=== PATIENT | female | born 1980 | race Caucasian/White ===

== ENCOUNTER 2019-12-15 20:00 | Emergency (ER) | payer BC ==
[2019-12-15] MEDS ORDERED: Diphtheria,Pertussis(Acell),Tetanus Vaccine 0.5 ML Syringe IM ONE (20:15)
[2019-12-15] MEDS ORDERED: Lidocaine 1% PF 2 ML SDV INJECT ONE (20:15)
--- NOTE | 2019-12-15 20:23 | EDM.PDOC ---
ED HPI GENERAL MEDICAL PROBLEM - General Chief Complaint: Laceration Stated Complaint: INJURY TO HAND Time Seen by Provider: 12/15/19 20:13 - History of Present Illness INITIAL COMMENTS - FREE TEXT/NARRATIVE: HISTORY AND PHYSICAL: History of present illness: The patient is a 39-year-old female who is unsure of her last tetanus shot and presents after cutting her left hand. Prior to these events she was in her usual state of good health with no systemic issues and she only complains of pain at the laceration. She has no numbness or tingling in her distal fingers and has no decreased range of motion. She otherwise is healthy. Review of systems: As per history of present illness and below otherwise all systems reviewed and negative. Past medical history: As per history of present illness and as reviewed below otherwise noncontributory. Surgical history: As per history of present illness and as reviewed below otherwise noncontributory. Social history: No reported history of drug or alcohol abuse. Family history: As per history of present illness and as reviewed below otherwise noncontributory. Physical exam: HEENT: Atraumatic, normocephalic, pupils reactive, negative for conjunctival pallor or scleral icterus, mucous membranes moist, throat clear, neck supple, nontender, trachea midline. Lungs: Clear to auscultation, breath sounds equal bilaterally, chest nontender. Heart: S1S2, regular, and rhythm no overt murmurs Abdomen: Soft, nondistended, nontender. Negative for masses or hepatosplenomegaly. Negative for costovertebral tenderness. Pelvis: Deferred Rectal: Deferred. Extremities: Atraumatic full range of motion of all extremities with the exception of the dorsal aspect of the left hand just proximal to the second MCP there is a linear laceration measuring a total of 2 cm with some subcu fat seen but the base is able to be visualized and there are no foreign bodies appreciated. The patient has a full strength with extension at this digit and has no other injuries. There is no numbness or tingling in the distal second digit. The legs are, negative for cords or calf pain. Neurovascular unremarkable. Neuro: Awake, alert, oriented. Cranial nerves II through XII unremarkable. Cerebellum unremarkable. Motor and sensory unremarkable throughout. Exam nonfocal. Diagnostics: [] Therapeutics: Irrigation, lidocaine 1% without epinephrine for sutures, bacitracin and dressing per nursing Procedure note: After the wound was irrigated and cleansed by nursing 1% lidocaine without epinephrine was infused in a local fashion and the wound was prepped and draped in sterile fashion. The wound was explored and no foreign bodies were appreciated. The skin edges were reapproximated using a total number of #3 sutures of 4-0 nylon in a simple interrupted fashion. There were no complications and the patient tolerated the procedure well. Bacitracin and a gauze dressing were applied. Procedure was performed by Waylon Boswell nurse practitioner Impression: Hand laceration left Definitive disposition and diagnosis as appropriate pending reevaluation and review of above. left hand Pain Score (Numeric/FACES): 4 - Related Data Allergies Allergy/AdvReac Type Severity Reaction Status Date / Time No Known Allergies Allergy Verified 12/15/19 20:28 Home Meds: Home Meds ALPRAZolam [Alprazolam] 1 - 2 tab PO ASDIRECTED PRN 04/28/17 [History] Benztropine [Cogentin] 1 mg PO BID 04/28/17 [History] Desog-E.Estradiol/E.Estradiol [Desogestr-Eth Estrad Eth Estra] 1 tab PO ASDIRECTED 04/28/17 [History] OLANZapine [Olanzapine] 5 mg PO DAILY 04/28/17 [History] QUEtiapine Fumarate [Seroquel] 2 tab PO BEDTIME 04/28/17 [History] Simvastatin 10 mg PO BEDTIME 04/28/17 [History] lamoTRIgine 200 mg PO BEDTIME 04/28/17 [History] Past Medical History HEENT History: Reports: Impaired Vision Other HEENT History: wears glasses Cardiovascular History: Reports: High Cholesterol Respiratory History: Reports: None Gastrointestinal History: Reports: None Genitourinary History: Reports: None Musculoskeletal History: Reports: None Neurological History: Reports: None Psychiatric History: Reports: Bipolar Endocrine/Metabolic History: Reports: None Hematologic History: Reports: None Oncologic (Cancer) History: Reports: None Dermatologic History: Reports: None - Past Surgical History Female Surgical History: Reports: Other (See Below) Other Female Surgeries/Procedures: states she does not get her menstual cycle due to the medications she is on. Social & Family History - Caffeine Use Caffeine Use: Reports: Soda ED ROS GENERAL - Review of Systems Review Of Systems: Comprehensive ROS is negative, except as noted in HPI. ED EXAM, SKIN/RASH Exam: See Below (See dictation) Course - Vital Signs Last Recorded V/S: Last Vital Signs Temp 36.5 C 12/15/19 20:12 Pulse 87 12/15/19 20:12 Resp 16 12/15/19 20:12 BP 147/77 H 12/15/19 20:12 Pulse Ox 97 12/15/19 20:12 - Orders/Labs/Meds Orders: Active Orders 24 hr Category Date Time Status Communication Order [RC] STAT Care 12/15/19 20:17 Active Vaccines to be Administered [RC] PER UNIT ROUTINE Care 12/15/19 20:15 Active Meds: Medications Discontinued Medications Generic Name Dose Route Start Last Admin Trade Name Freq PRN Reason Stop Dose Admin Diphtheria/Tetanus/Acell Pertussis 0.5 ml 12/15/19 20:15 Adacel IM 12/15/19 20:16 .ONCE ONE Lidocaine HCl 2 ml 12/15/19 20:15 Xylocaine-Mpf 1% INJECT 12/15/19 20:16 ONETIME ONE Departure - Departure Time of Disposition: 20:30 Disposition: Home, Self-Care 01 Condition: Good Clinical Impression: Laceration of hand Qualifiers: Encounter type: initial encounter Foreign body presence: without foreign body Laterality: left Qualified Code(s): S61.412A - Laceration without foreign body of left hand, initial encounter - Discharge Information Referrals: PCP,None [Primary Care Provider] - Forms: ED Department Discharge Additional Instructions: The following information is given to patients seen in the emergency department who are being discharged to home. This information is to outline your options for follow-up care. We provide all patients seen in our emergency department with a follow-up referral. The need for follow-up, as well as the timing and circumstances, are variable depending upon the specifics of your emergency department visit. If you don't have a primary care physician on staff, we will provide you with a referral. We always advise you to contact your personal physician following an emergency department visit to inform them of the circumstance of the visit and for follow-up with them and/or the need for any referrals to a consulting specialist. The emergency department will also refer you to a specialist when appropriate. This referral assures that you have the opportunity for followup care with a specialist. All of these measure are taken in an effort to provide you with optimal care, which includes your followup. Under all circumstances we always encourage you to contact your private physician who remains a resource for coordinating your care. When calling for followup care, please make the office aware that this follow-up is from your recent emergency room visit. If for any reason you are refused follow-up, please contact the [facility] emergency department at and ask to speak to the emergency department charge nurse. [facility] Primary care- Internal Medicine and Family [address] [address] Keep wound clean and dry for the next 24 hours and then cleanse with mild soap and water pat dry and apply bacitracin or Neosporin twice a day. Do not use Band-Aids and only use breathable dressings when it needs to be covered and try to keep it open to air as much as possible. Please have sutures removed in 7 days either here or with your provider in the clinic. Return to ER sooner as needed and as discussed. Sepsis Event Note - Focused Exam Vital Signs: Vital Signs Temp Pulse Resp BP Pulse Ox 12/15/19 20:12 36.5 C 87 16 147/77 H 97 Date Exam was Performed: 12/15/19 Time Exam was Performed: 20:29 - My Orders Last 24 Hours: My Active Orders 12/15/19 20:17 Communication Order [RC] STAT - Assessment/Plan Last 24 Hours: My Active Orders 12/15/19 20:17 Communication Order [RC] STAT
[2019-12-15 20:28] VITALS: BP 147/77; PULSE 87
== END 2019-12-15 20:41 | disposition home or self-care (01) ==
LOC: MW.ED 20:00
DX: S61.412A Laceration without foreign body of left hand, initial encounter (principal); E78.00 Pure hypercholesterolemia, unspecified; Z23 Encounter for immunization; Z79.899 Other long term (current) drug therapy; W26.0XXA Contact with knife, initial encounter
CPT/HCPCS: 12001; 90471; 90715; 99282; J2001

== ENCOUNTER 2019-12-22 16:43 | Emergency (ER) | payer BC ==
[2019-12-22 17:06] VITALS: BP 128/76; PULSE 76
== END 2019-12-22 17:00 | disposition left against medical advice (07) ==
LOC: MW.ED 16:43
DX: Z53.21 Procedure and treatment not carried out due to patient leaving prior to being seen by health care provider (principal)
CPT/HCPCS: 99281